=== PATIENT | male | born 1975 | race Caucasian/White ===

== ENCOUNTER 2016-11-26 13:03 | Emergency (ER) | payer SELFPAY ==
[2016-11-26 13:30] VITALS: BP 117/75
--- NOTE | 2016-11-26 13:44 | UC ---
Laceration HPI - HPI Summary HPI Summary: complaint of laceration under his chin that happened at 1:15 today when a meal grinder tender huit him under the chin lots of bleeding not UTD on tetanus - History Of Current Complaint Chief Complaint: UCLaceration Stated Complaint: CHIN LACERATION Time Seen by Provider: 11/26/16 13:32 Hx Obtained From: Patient Laceration Location: Face Onset/Duration: Sudden Onset - Allergies/Home Medications Allergies/Adverse Reactions: Allergies Allergy/AdvReac Type Severity Reaction Status Date / Time No Known Allergies Allergy Verified 11/26/16 13:25 Home Medications: Home Medications Bupropion XL* [Wellbutrin XL *] 150 mg PO DAILY 11/26/16 [History Confirmed 07/10] Sertraline* [Zoloft*] 100 mg PO DAILY 11/26/16 [History Confirmed 11/26/16] PMH/Surg Hx/FS Hx/Imm Hx Previously Healthy: Yes Psychological History: Depression - Surgical History Surgical History: Yes Surgery Procedure, Year, and Place: L foot - Family History Known Family History: Negative: Cardiac Disease, Hypertension, Diabetes - Social History Occupation: Employed Full-time Lives: With Family Alcohol Use: None Substance Use Type: None Smoking Status (MU): Heavy Every Day Tobacco Smoker Type: Cigarettes Amount Used/How Often: 1 pack daily Cessation Counseling: Patient Advised to Stop - Immunization History Most Recent Tetanus Shot: unknown Review of Systems Constitutional: Negative Skin: Other - laceration Eyes: Negative ENT: Negative Respiratory: Negative Cardiovascular: Negative Gastrointestinal: Negative Genitourinary: Negative Motor: Negative Neurovascular: Negative Musculoskeletal: Negative Neurological: Negative Psychological: Negative All Other Systems Reviewed And Are Negative: Yes Physical Exam Triage Information Reviewed: Yes Appearance: No Pain Distress, Well-Nourished Vital Signs: Initial Vital Signs Temp 97.7 F 11/26/16 13:26 Pulse 74 11/26/16 13:26 Resp 16 11/26/16 13:26 BP 117/75 11/26/16 13:26 Vital Signs Reviewed: Yes Eyes: Positive: Conjunctiva Clear ENT: Positive: Pharynx normal, TMs normal Neck: Positive: No Lymphadenopathy Respiratory: Positive: Lungs clear, Normal breath sounds, No respiratory distress, No accessory muscle use Cardiovascular: Positive: RRR, No Murmur, Pulses Normal Abdomen Description: Positive: Nontender, Soft Bowel Sounds: Positive: Present Musculoskeletal: Positive: No Edema Psychological Exam: Normal Skin: Positive: Other - laceration under chin 1.5 cm Laceration Repair - Laceration Repair 1 Description: Linear Laceration Size After Repair: Length (cm) - 1.5, Width (mm) - 2, Depth (mm) - 2 Modified For Repair: No Type Injection: Local Anesthesia Used: 1.0% Lido Additive Used (in ml): Epi Cleansing Completed Via Routine Prep: Yes Irrigation With Pressure Irrigation Device: Yes Closure Material: Sutures Closure Method: Single Layer Suture Of: Skin Suture Type: Nylon Laceration Course/Dx - Differential Dx - Laceration/Wound Differental Diagnoses: Laceration Provider Diagnoses: simple laceration - chin Discharge - Discharge Plan Condition: Stable Disposition: HOME Patient Education Materials: Laceration (ED), Care For Your Stitches (ED) Referrals: [facility] [Outside] Additional Instructions: LACERATION What is a Laceration? Laceration is the medical name for a cut. Lacerations may be large or small. Some lacerations need stitches (also called sutures) to close them so they will heal well. Stitches usually need to be placed within 6 hours of injury. There are times when a wound may be determined to be too old for stitches. Stitches are removed when the wound is strong enough to stay closed, which is usually in 7 to 10 days, depending on where the wound or cut is located. Some stitches dissolve by themselves and do not need to be removed. If you have been given a numbing medicine, there will be some pain when it wears off. The pain from the wound should begin to decrease within one day. Treatment Recommendations: Keep the wound clean and dry for at least the next two (2) days. Keep the dressing clean if at all possible. If you must work in surroundings that will dirty the wound or dressing, wear a protective covering such as a glove. If the wound does get dirty, clean it as soon as you can with mild soap and water using a patting action. Do not rub or scrub vigorously. Then pat it dry completely. If a dressing was placed on the wound, you should put a clean one on at least daily and whenever you clean the wound. You can apply antibiotic ointment such as Bacitracin ointment to the wound each time you change the dressing. Avoid using the injured part as much as possible. If the wound is near a joint , try not to bend the joint too much. Elevate the injured part above your heart whenever possible to relieve throbbing. If you had stitches put in, you should see your healthcare provider in 1 to 2 days to have the wound checked for any signs or symptoms of infection. Some stitches will dissolve by themselves. Others will need to be removed. Make an appointment with your healthcare provider to have the stitches removed on the date instructed. . Call Your Doctor or Return Here IF: Your wound becomes red, warm, swollen or more painful. There are red streaks coming from the wound. You develop a fever or shaking chills. Pus or bad smelling fluid comes out of the wound. You have any other symptoms that worry you.
[2016-11-26] MEDS ORDERED: Lidocaine 1% MPF wEPI 200,000* 30 ML SDV INJ ONE (13:49)
[2016-11-26] MEDS ORDERED: Tetan/Diph/Pertus SYR(Tdap)* 0.5 ML SYR(BOOSTRIX) use SYR IM ONE (14:14)
== END 2016-11-26 14:35 | disposition home or self-care (01) ==
LOC: UCCORT 13:03
DX: S01.81XA Laceration without foreign body of other part of head, initial encounter (principal); W31.2XXA Contact with powered woodworking and forming machines, initial encounter; Y93.9 Activity, unspecified; Y92.9 Unspecified place or not applicable; Z23 Encounter for immunization; F32.9 Major depressive disorder, single episode, unspecified; F17.210 Nicotine dependence, cigarettes, uncomplicated
CPT/HCPCS: 12011; 90471; 90715; 99201; G0463; J2001

== ENCOUNTER 2016-12-07 13:58 | Emergency (ER) | payer SELFPAY ==
--- NOTE | 2016-12-07 16:00 | UC ---
HPI Wound/Suture Re-check - HPI Summary HPI Summary: Pt presents for suture removal. Pt had 5 sut[facility] 11[facility]26/16 [facility] - History Of Current Complaint Stated Complaint: REMOVE STITCHES Time Seen by Provider: 12/07/16 15:52 Hx Obtained From: Patient Onset/Duration: Still Present Severity: Mild - Allergies/Home Medications Allergies/Adverse Reactions: Allergies Allergy/AdvReac Type Severity Reaction Status Date / Time No Known Allergies Allergy Verified 12/07/16 15:53 PMH/Surg Hx/FS Hx/Imm Hx Previously Healthy: Yes - Surgical History Surgical History: Yes Surgery Procedure, Year, and Place: L foot - Family History Known Family History: Negative: Cardiac Disease, Hypertension, Diabetes - Social History Alcohol Use: None Substance Use Type: None Smoking Status (MU): Heavy Every Day Tobacco Smoker Type: Cigarettes Amount Used/How Often: 1 pack daily Have You Smoked in the Last Year: Yes Cessation Counseling: Patient Advised to Stop - Immunization History Most Recent Tetanus Shot: unknown Review of Systems Constitutional: Negative Skin: Other - sutures in chin Eyes: Negative ENT: Negative Respiratory: Negative Cardiovascular: Negative Gastrointestinal: Negative Genitourinary: Negative Motor: Negative Neurovascular: Negative Musculoskeletal: Negative Neurological: Negative Psychological: Negative All Other Systems Reviewed And Are Negative: Yes Physical Exam Triage Information Reviewed: Yes Appearance: Well-Appearing Vital Signs Reviewed: Yes Eye Exam: Normal ENT Exam: Normal Dental Exam: Normal Respiratory Exam: Other Respiratory: Positive: Normal breath sounds Musculoskeletal Exam: Normal Neurological Exam: Normal Psychological Exam: Normal Skin Exam: Other - sutures intact, chin; tenderness, discharge or erythema Course/Dx - Differential Dx - Laceration/Wound Differential Diagnoses: Suture Removal Provider Diagnoses: 5 sutures removed. no erythema, no discharge, non tender. Pt tolerated procedure well Discharge - Discharge Plan Condition: Stable Disposition: HOME Patient Education Materials: Stitches Removal (ED) Referrals: Non Staff,Doctor [Primary Care Provider] - If Needed
[2016-12-07 16:02] VITALS: BP 123/78
== END 2016-12-07 16:11 | disposition home or self-care (01) ==
LOC: UCCORT 13:58
DX: S01.81XD Laceration without foreign body of other part of head, subsequent encounter (principal); X58.XXXD Exposure to other specified factors, subsequent encounter; Y92.9 Unspecified place or not applicable; F17.210 Nicotine dependence, cigarettes, uncomplicated